=== PATIENT | male | born 1935 | race Caucasian/White ===

== ENCOUNTER → 2016-05-05 | Outpatient (CLI) | payer OTHER ==
--- NOTE | 2016-05-07 19:03 | DI ---
MRI LOW EXTREMITY JNT W/O CN,05/05/2016 8:49 AM: Clinical History: Right knee joint effusion. Previous Exam: None at this facility. Findings: Multiplanar MR images are obtained through the right knee without contrast. Bony alignment is anatomic. There are no fractures seen however, there are osteochondral defects note d worst within the lateral compartment where there are full thickness defects and some subchondral ed bong involving the weightbearing surface of the lateral femoral condyle. There is near complete thinning of the articular cartilage of the weightbearing surface of the medial femoral condyle with a few osteophytes. There are some mild thinning within the anterior compartment . There is a complex tear of the body of the lateral meniscus as well. The anterior and posterior cruciate ligaments are intact. The medial and lateral collateral ligaments are intact however, there is some increased signal involv ing the medial collateral ligament and some thickening. There is a complex tear of the posterior horn and body of the medial meniscus. There is subcutaneous edema noted. The quadriceps and patellar tendons are intact. There are a few small ganglion cysts involving the pr oximal attachment of the anterior cruciate ligament. Signal within the musculature is grossly normal. Impression: 1. 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 2. Complex tears of the posterior horn and body of the medial meniscus. 3. Complex tear involving the body of the lateral meniscus. 4. Large knee joint effusion. 5. Thickening and increased signal of the medial collateral ligament most consistent with a partial t ear of the medial collateral ligament
== END ==
LOC: MRI 08:44
PROVIDERS: ATTEND Physician Assistant
DX: M25.461 Effusion, right knee (principal); M23.221 Derangement of posterior horn of medial meniscus due to old tear or injury, right knee; S83.271A Complex tear of lateral meniscus, current injury, right knee, initial encounter; S83.411A Sprain of medial collateral ligament of right knee, initial encounter
CPT/HCPCS: 73721

== ENCOUNTER → 2016-05-26 | Outpatient (CLI) | payer OTHER | LOC: MMPC 10:00 | PROVIDERS: ATTEND Orthopaedic Surgery | DX: S83.411D Sprain of medial collateral ligament of right knee, subsequent encounter (principal); S83.241D Other tear of medial meniscus, current injury, right knee, subsequent encounter; S83.521D Sprain of posterior cruciate ligament of right knee, subsequent encounter | CPT/HCPCS: 99213; G0463 ==